=== PATIENT | male | born 1965 | race African-American/Black ===

== ENCOUNTER 2019-01-03 10:59 | Outpatient (CLI) | payer OTHER ==
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
== END 2019-01-03 11:00 | disposition home or self-care (01) ==
LOC: BICRAD 10:59
PROVIDERS: ATTEND Anesthesiology
DX: M54.2 Cervicalgia (principal)
CPT/HCPCS: 72040

== ENCOUNTER 2019-03-31 08:28 | Outpatient (CLI) | payer OTHER ==
--- NOTE | 2019-03-31 09:05 | RAD ---
EXAM: 6 views of the lumbosacral spine HISTORY: Low back pain COMPARISON: None FINDINGS: 6 views of the lumbosacral spine shows normal height and alignment of the vertebral bodies and intervertebral discs without fracture or subluxation. Mild osteophytes are seen in the lower lumbosacral spine. No change in alignment is seen with flexion or extension. The sacroiliac joints are unremarkable. IMPRESSION: Mild degenerative changes of the lumbar spine
== END 2019-03-31 08:29 | disposition home or self-care (01) ==
LOC: BICRAD 08:28
PROVIDERS: ATTEND Anesthesiology Pain Medicine
DX: M54.5 Low back pain (principal); M47.816 Spondylosis without myelopathy or radiculopathy, lumbar region
CPT/HCPCS: 72100

== ENCOUNTER 2019-11-12 10:35 | Emergency (ER) | payer MEDICARE ==
--- NOTE | 2019-11-12 11:21 | RAD ---
LEFT SHOULDER 3 VIEWS: Date: 11/12/2019 HISTORY: Pain after a fall. COMPARISON: None. FINDINGS: No acute fracture or malalignment. Mild degenerative disease of acromioclavicular joint. Visualized ribs are intact. IMPRESSION: No acute osseous abnormality. POS: HOME
== END 2019-11-12 21:45 | disposition home or self-care (01) ==
LOC: ERS 10:35
DX: S40.012A Contusion of left shoulder, initial encounter (principal); I10 Essential (primary) hypertension; G89.29 Other chronic pain; F17.210 Nicotine dependence, cigarettes, uncomplicated; Z79.899 Other long term (current) drug therapy; W01.0XXA Fall on same level from slipping, tripping and stumbling without subsequent striking against object, initial encounter

== ENCOUNTER 2020-02-05 08:20 | Outpatient (CLI) | payer MEDICARE ==
--- NOTE | 2020-02-05 09:38 | MRI ---
MRI Lumbar Spine WO Con HISTORY: Chronic back pain with right hip and knee pain. COMPARISON: None. FINDINGS: The vertebral bodies are normal in height. Disc desiccation changes are seen at L3-4, L4-5 and L5-S1. There are Modic type changes of the L5-S1 level and disc narrowing. There is no significant periaortic adenopathy. The visualized kidneys are unremarkable. T12-L1: Unremarkable. L1-2: Unremarkable. L2-3: Degenerative facet and ligamentous hypertrophic change associated with a mild degree of canal n arrowing no foraminal stenosis. L3-4: Moderately severe canal stenosis with the disc bulge facet and ligamentous hypertrophic change. Appears be a component of very small right lateral disc protrusion. There is mild to moderate bilateral foraminal narrowing. L4-5: Moderate canal stenosis present at this level degenerative facet changes and disc bulge contrib brijesh to a mild to moderate degree of left-sided foraminal narrowing. L5-S1: Disc bulge is present this level. There is mild to moderate left and moderate right foraminal stenosis. IMPRESSION: Multilevel areas of canal and foraminal stenosis as above.
== END 2020-02-05 08:21 | disposition home or self-care (01) ==
LOC: SCSMRI 08:20
PROVIDERS: ATTEND Anesthesiology Pain Medicine
DX: M47.816 Spondylosis without myelopathy or radiculopathy, lumbar region (principal); M54.5 Low back pain; M48.061 Spinal stenosis, lumbar region without neurogenic claudication; M48.07 Spinal stenosis, lumbosacral region
CPT/HCPCS: 72148

== ENCOUNTER 2021-12-15 15:01 | Emergency (ER) | payer MEDICARE ==
[2021-12-15 16:01] LABS: #Lymphocytes 1.1 thou/uL (1.20-3.40); #Monocytes 0.5 thou/uL (0.11-0.59); %Basophils 0.7 % (0.0-1.0); %Eosinophils 0.2 % (0.0-10.0); %Lymphocytes 18.9 % (21.0-51.0); %Monocytes 8.8 % (0.0-10.0); %Neutrophils 71.4 % (42.0-75.0); Hemoglobin 14.1 g/dL (14.0-18.0); Mean Corpuscular HGB CONC 33.1 g/dL (32.0-36.0); Mean Corpuscular Hemoglobin 29.9 pg (27.0-31.0); Mean Corpuscular Volume 90.2 fL (78.0-98.0); Platelet Count 222 thou/uL (130-400); RBC Distribution Width 11.6 % (11.5-14.5); Red Blood Cell (RBC) Count 4.71 mill/uL (4.70-6.10); White Blood Cell (WBC) Count 5.6 thou/uL (4.8-10.8)
[2021-12-15] MEDS ORDERED: diphenhydrAMINE 50 MG/ML VIAL ONE (16:06)
[2021-12-15] MEDS ORDERED: Metoclopramide HCl 10 MG/2 ML VIAL ONE (16:06)
[2021-12-15] MEDS ORDERED: Dexamethasone 10 MG/ML VIAL ONE (16:06)
[2021-12-15] MEDS ORDERED: Ketorolac Tromethamine 30 MG/ML VIAL ONE (16:06)
[2021-12-15 16:24] LABS: ALT (SGPT) 33 U/L (8-55); AST (SGOT) 30 U/L (5-34); Albumin 3.9 g/dL (3.5-5.0); Alkaline Phosphatase 98 U/L (40-110); Anion Gap 14 mmol/L (10-20); BUN (Urea Nitrogen) 13 mg/dL (8.4-25.7); Bilirubin, Total 0.8 mg/dL (0.2-1.2); CK (CPK) 71 U/L (30-200); Calc. Creatinine Clearance 0 mL/min (70-130); Calcium 9.2 mg/dL (7.8-10.44); Carbon Dioxide 23 mmol/L (22-29); Chloride 98 mmol/L (98-107); Globulin 3.7 g/dL (2.4-3.5); Glucose 95 mg/dL (70-105); Lipase Less than 4 U/L (8-78); Potassium 3.8 mmol/L (3.5-5.1); Protein, Total 7.6 g/dL (6.0-8.3); Sodium 131 mmol/L (136-145)
[2021-12-15 20:06] LABS: SARS-CoV-2 NAA Rapid Test Not Detected (NotDetected)
== END 2021-12-15 18:26 | disposition home or self-care (01) ==
LOC: ERS 15:01
DX: B34.9 Viral infection, unspecified (principal); Z20.822 Contact with and (suspected) exposure to COVID-19; F17.210 Nicotine dependence, cigarettes, uncomplicated
CPT/HCPCS: 0240U; 70450; 71045; 80053; 82550; 83690; 84484; 85025; 93005; 96374; 96375; 99284; 36415; J1100; J1200; J1885; J2765